=== PATIENT | female | born 1940 | race Caucasian/White ===

== ENCOUNTER 2016-11-05 17:39 | Inpatient (IN) | payer MEDICARE, OTHER ==
--- NOTE | 2016-11-05 18:52 | RAD ---
Name: MEGHA ROWLEY Exam: Left lower leg Comparison: None Clinical history: Ground-level fall. Leg pain. Initial encounter. Findings: 2 views of the left lower leg are submitted. Bone density is within normal limits. There is been prior total left knee arthroplasty. There is mild degenerative disease of the ankle. Lower leg edema is suspected. There is no fracture, dislocation, periosteal fracture foreign body. Impression: 1. Total left knee arthroplasty 2. No acute bony abnormality 3. Lower leg edema is suspected
[2016-11-05 22:12] LABS: ABSOLUTE NEUTROPHIL COUNT 3.9 K/mm3 (1.8-7.7); BASO % 0.2 % (0.2-1.0); EOS % 0.2 % (0.9-2.9); HEMOGLOBIN 6.7 gm/l (12.0-16.0); IMM NEUT% 0.3 % (0-1); LYMPH # 1.4 (1.0-4.8); LYMPH % 23.4 % (15-45); MEAN CELL VOLUME 105.9 fl (81.0-99.0); MEAN PLATELET VOLUME 13.8 fl (7.4-10.4); MONO # 0.6 (0.0-0.8); MONO % 9.5 % (4-12); NEUT % 66.4 % (43-75); PLATELET COUNT 52 K/mm3 (130-400); RED CELL DISTRIBUTION WIDTH 17.2 % (11.5-14.5)
[2016-11-05 22:39] LABS: INR 3.68; PROTHROMBIN TIME 41.4 SECONDS (9.3-11.4)
[2016-11-05 22:51] LABS: HEMATOCRIT 19.7 % (37.0-47.0)
[2016-11-05 22:56] LABS: PLATELET ESTIMATE DECREASED (NORMAL); TARGET CELLS 1+
[2016-11-05] MEDS ORDERED: IOPAMIDOL 300 (61%) 100 ML VIAL IV ONE (22:58)
[2016-11-06 00:16] VITALS: BMI 18.7
[2016-11-06] MEDS ORDERED: ACETAMINOPHEN 325 MG TABLET PO PRN (00:42)
[2016-11-06] MEDS ORDERED: BLISTEX LIPSTICK 1 EACH TP PRN (00:42)
[2016-11-06] MEDS ORDERED: MENTHOL/CETYLPYRD 1 EACH LOZENGE PO PRN (00:42)
[2016-11-06] MEDS ORDERED: MAGNESIUM HYDROXIDE 30 ML UDCUP PO PRN (00:42)
[2016-11-06] MEDS ORDERED: SODIUM CHLORIDE 0.9% 100 ML IV PRN (00:42)
[2016-11-06] MEDS ORDERED: SODIUM CHLORIDE 0.9% 500 ML IV PRN (00:46)
[2016-11-06] MEDS: OXYCODONE HCL 5 MG TABLET PO PRN ×3 (01:00→15:57)
[2016-11-06] MEDS ORDERED: BLOOD Y PLUMSET W/CASSETTE ONE ×2 (01:42→06:36)
[2016-11-06] MEDS ORDERED: ONDANSETRON 4 MG ODT TAB PO PRN (03:41)
[2016-11-06] MEDS ORDERED: LEVOTHYROXINE SODIUM 112 MCG TABLET PO SCH (07:30)
[2016-11-06] MEDS ORDERED: LEVOTHYROXINE SODIUM 25 MCG TABLET PO SCH (07:30)
--- NOTE | 2016-11-06 08:15 | HP ---
MEGHA ROWLEY [id number] : 1940 DATE OF ADMISSION: November 05, 2016 IDENTIFICATION: Ms. Rowley is a 75-year-old followed by Navya Quintero, family nurse practitioner and Dr. Casas. CHIEF COMPLAINT: Fall and hematoma. HISTORY OF PRESENT ILLNESS: Ms. Rowley fell while walking two days ago. She fell on her right leg. She has had occasional sharp pain in the leg since then but noted when the leg was unwrapped on November 05, 2016, that there was a very large ecchymoses of the left calf. She did not have dyspnea or lightheadedness but was concerned about injury to the left knee, so came to the emergency department for evaluation. X-ray shows stable prosthetic knee joint but laboratories show profound anemia with a hemoglobin of 6.7. She was referred to the hospitalist service for transfusion. REVIEW OF SYSTEMS: HEENT: No headache or lightheadedness. Denies problems with ears, eyes, nose or throat. RESPIRATORY: No cough or dyspnea. CARDIAC: No chest pain or palpitations. GASTROINTESTINAL: She does have occasional nausea, no vomiting, no diarrhea, constipation, hematochezia or melena. GENITOURINARY: No dysuria or hematuria. MUSCULOSKELETAL: Chronic back and right hip pain as well as intermittent acute left leg pain. Weakness of the left arm which has been present for an indeterminate period of time, but she is unable to lift the arm spontaneously and has to use her right arm to lift or maneuver the left arm. CONSTITUTIONAL: States she feels cold all the time. PAST MEDICAL HISTORY: 1. Chronic atrial fibrillation on warfarin anticoagulation. 2. Hypothyroidism on replacement. 3. Cancer of the right lung treated with Optiva followed by Dr. Casas. She has not had surgery or radiation. 4. Chronic lower extremity lymphedema bilateral. 5. Osteoarthritis. 6. Underweight with body mass index of 19.9. PAST SURGICAL HISTORY: 1. Bilateral knee arthroplasties. 2. Right hip arthroplasty. 3. Lumbar back surgery. 4. Hysterectomy with appendectomy. 5. Bilateral cataracts. 6. Removal of calcium deposit from the right shoulder. ALLERGIES: REPORTED TO: 1. PENICILLIN WHICH CAUSED HIVES. 2. ASPIRIN WHICH CAUSED ABDOMINAL PAIN. MEDICATIONS: 1. Folic acid 1 mg orally daily. 2. Warfarin 3.25 mg orally daily. 3. Baclofen 20 mg orally daily. 4. Levothyroxine 137 mcg daily. 5. Oxycodone 20 mg every three hours as needed. 6. Naprosyn 375 mg orally daily. 7. Vitamin D supplement. HABITS: She is a lifetime smoker since her teenage years, and is currently smoking about one-half pack her day. Denies any alcohol use. SOCIAL HISTORY: She is . Lives in an apartment in [facility]. Her granddaughter is her caregiver and spends most days with her but does not live with her. FAMILY HISTORY: Both parents had coronary artery disease. Mother had breast cancer. She has a brother with Alzheimer's disease. CODE STATUS: She does not want to be placed on a ventilator if there is not a good chance of getting off of it, but would like an attempt at CPR. PHYSICAL EXAMINATION: GENERAL: This is a cachectic appearing elderly woman well hydrated repeats the same information several times. VITAL SIGNS: Blood pressure is 106/59, pulse 80 respiratory rate 20, oxygen saturation 96% on room air, temperature 97.1 degrees Fahrenheit. HEENT: Pupils are equal, round and reactive. Extraocular muscles are intact. Oropharynx with full artificial dentures. CHEST: Kyphotic with poor air movement. No wheezes or rhonchi. HEART: Is irregularly irregular. ABDOMEN: Is soft, nontender, normal bowel tones. No organomegaly. EXTREMITIES: 2+ lymphedema of the lower extremities. They are both wrapped with Kerlix up to the knees. On the left there is some deep ecchymosis. Dorsalis pedis pulses are trace. NEUROLOGIC: She is unable to lift the left arm. 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 Otherwise nonfocal. LABORATORY DATA: White blood cell count 5.9, hemoglobin 6.7, hematocrit 19.7. Indices are macrocytic. Platelets low at 52. INR 3.68. RADIOLOGY: X-ray of the left lower extremity shows total knee arthroplasty. No acute bony abnormality and lower leg edema. ASSESSMENT: Ms. Rowley is a 75-year-old who presents two days after a fall with profound anemia. Some degree of this is undoubtedly acute blood loss anemia into the left calf. But she likely has underlying anemia as well. This may be related to lung cancer. She has thrombocytopenia. She has chronic atrial fibrillation. She has hypothyroidism and nicotine dependency. PLAN: 1. Admit to medical/surgical floor. 2. Transfuse two units of packed red blood cells. 3. Check head CT scan without contrast for evidence of cerebrovascular accident and with contrast for evidence of metastatic disease. 4. Physical therapy and occupational therapy evaluation and treatment. 5. Continue outpatient medications except hold naproxen and warfarin. 6. Check TSH for appropriateness of levothyroxine dose. 7. Check B12 level which could be causing her macrocytosis if deficient. 8. Code status is DO NOT INTUBATE. 9. She is excessively anticoagulated on warfarin and does not require any additional venous thromboembolism prophylaxis.
[2016-11-06 08:31] LABS: HEMATOCRIT 20.2 % (37.0-47.0); MEAN CELL VOLUME 100.5 fl (81.0-99.0); MEAN CORPUSCULAR HEMOGLOBIN 34.8 pg (27.0-31.0); MEAN CORPUSCULAR HGB CONC 34.7 g/dl (33.0-37.0); RED CELL DISTRIBUTION WIDTH 19.1 % (11.5-14.5)
[2016-11-06 08:52] LABS: CALCIUM 8.3 mg/dL (8.6-10.3)
[2016-11-06] MEDS ORDERED: FOLIC ACID 1 MG TABLET PO SCH (09:00)
[2016-11-06] MEDS ORDERED: BACLOFEN 20 MG TABLET PO SCH (09:00)
[2016-11-06] MEDS ORDERED: PANTOPRAZOLE 40 MG TABLET DR PO SCH (09:00)
[2016-11-06] MEDS ORDERED: DOCUSATE SODIUM 100 MG CAPSULE PO SCH (09:00)
--- NOTE | 2016-11-06 10:53 | CT ---
Name: MEGHA ROWLEY Exam: CT head with and without contrast Comparison: None Clinical history: Left arm weakness. History of lung cancer. Technique: Helical CT was performed through the head prior to and following intravenous administration of 80 cc Isovue-300. Angled axial reconstructions were obtained. Sagittal and coronal reconstructions were obtained as well. An automated dose reduction technique was used to minimize patient radiation dose. Findings: CT head with and without contrast: There is no shift of the midline structures. Mild atrophy is present. In the left parietal lobe, superior to the lateral ventricle, there is a 8.8 x 8.0 x 7.3 mm enhancing nodule. Given history, metastatic disease is favored. MRI of the head with contrast is strongly recommended as it is much more sensitive and specific to metastatic disease. There is no mass effect or hemorrhage. Cisterns are uneffaced. Posterior fossa is unremarkable. There is no fracture. Visualized paranasal sinuses and mastoid air cells are within normal limits. Impression: 1. 8.8 mm round solid enhancing nodule left parietal lobe. Metastatic disease given history is favored. MRI with contrast is strongly recommended. 2. Age-appropriate atrophy Note: The above report was uploaded to [facility]'s electronic medical records system at 1049 hours.
[2016-11-06 14:23] VITALS: BP 101/61
[2016-11-06] MEDS ORDERED: DIGOXIN 0.25 MG TABLET PO ONE (16:13)
[2016-11-06 16:37] LABS: HEMATOCRIT 27.2 % (37.0-47.0); HEMOGLOBIN 9.6 gm/l (12.0-16.0)
--- NOTE | 2016-11-06 19:20 | DS ---
MEGHA ROWLEY [id number] DATE OF ADMISSION: November 05, 2016 DATE OF DISCHARGE: November 06, 2016 DISCHARGE DIAGNOSES: 1. Fall with a hematoma in the left leg. 2. Acute blood loss anemia. 3. Tachycardia due to chronic atrial fibrillation. 4. History of metastatic lung cancer with some left arm weakness, probably due to brain metastasis. 5. Underweight status. 6. Chronic hypothyroidism with slight suboptimal thyroid replacement. 7. Nicotine dependence. 8. Iron deficiency anemia. 9. Slightly elevated INR associated with Coumadin therapy. 10. Stage 3 right decubital ulcer. SUMMARY OF ADMISSION AND HOSPITAL COURSE: The patient is a 75-year-old female with a history of lung cancer followed by [facility] on Opdivo therapy who presented after a fall on her left lower leg with complaints of leg pain and swelling. Workup in the emergency department showed hemoglobin of 6.7, INR mildly elevated at 3.68, platelet count was low at 52, white blood cell count was normal at 5.9. X-ray of the left lower extremity showed no acute abnormality. Her chemistry profile was unremarkable, and she was admitted by the hospitalist service and transfused two units of packed red blood cells. During her stay, she did have some persistent tachycardia on the monitor with heart rates into the 130s and 140s. She was also noted to have a stage 3 right sacral decubitus ulceration. As far as her tachycardia is concerned, digitalis was recommended for rate control due to blood pressures as low as 91/49. She was asymptomatic despite the rapid heartbeat. After transfusion, her hemoglobin stabilized at 9.6. She was very eager to go home. She was noted to have some left arm weakness which is new in onset over the past week. She had a CT of the brain showing an 8.8 mm enhancing nodule in the left parietal lobe suspicious for metastatic disease but anatomically did not explain her left arm weakness. The cause of her left arm weakness still felt to be secondary to metastatic disease but further workup was not performed in the emergency department. She was evaluated and treated by physical therapy and occupational therapy and shown to be independent with her activities of daily living with standby assistance. She has a supportive granddaughter who agreed to be with her 24/ over the weekend. Patient declined further workup of her anemia and insisted on going home in spite of the ongoing tachycardia. Given the fact that she likely has a terminal cancer, I felt the focus was on honoring the patient's wishes during this stressful time, and recommended that she start digitalis. I gave her a dose in the hospital and I am going to do an oral loading dose at home. She will be following up with Dr. Casas and her primary care provider next week regarding the brain metastasis and her anemia. She did have a TSH level which was slightly high at 9.32 and her thyroid hormone was increased slightly. Serum iron level was also low at 23. B12 level was checked and it was normal at 310. PHYSICAL EXAM: VITAL SIGNS: Her discharge vital signs showed a temperature of 98.8, pulse 135, blood pressure is 101/61, respirations 12, oxygen saturation 92% on room air. Body mass index 19.9. Weight is 52.7 kilograms. GENERAL: This is a thin elderly female in no acute distress. HEENT: Shows moist, pink oral mucosa, no lesions. LUNGS: Are clear to auscultation bilaterally. CARDIOVASCULAR: Exam reveals an irregular tachycardia with no murmur. ABDOMEN: Is soft, nontender, nondistended with positive bowel sounds. EXTREMITIES: Show no peripheral edema. Exam of the buttocks showed a stage 3 decubitus ulcer on the right buttock region measuring about 8 x 4 cm. LABORATORY STUDIES: Showed white count of 5.4, hemoglobin of 9.6 post two units and hematocrit 27.2. Chemistry profile on the day of admission and discharge showed a sodium 130, potassium 3.8, creatinine 0.7. As I mentioned above, her serum iron level was low at 23, B12 level normal at 310, and TSH level was elevated at 9.32. DISPOSITION: Home. DISCHARGE MEDICATIONS: She is going to be prescribed: 1. Lanoxin 0.125 mg tablets. She will take this daily at noon. I recommended she take it four times a day for the first day for a total of four doses, and then once daily at noon after that. 2. She is prescribed iron sulfate 325 mg twice daily. 3. Her thyroid dose is increased to a 150 mcg daily of Levothroid. 4. She will take vitamin C 250 mg twice daily with the iron supplement. 5. She will continue with vitamin D3 1000 units at home as previously prescribed. 6. Oxycodone 20 mg every three hours as needed for pain. 7. Baclofen 20 mg daily as needed for spasm. 8. Coumadin 3.25 mg daily. 9. Folic acid 1 mg daily. FOLLOWUP: Followup is to be scheduled by the patient with Dr. Jarvis Casas, and she will contact his office early next week. She will follow up with Navya Villar, family nurse practitioner, in seven to ten days. Cc: Maryam Love M.D.
== END 2016-11-06 17:30 | disposition home or self-care (01) | DRG 604 ==
LOC: ED 17:39 → MS 22:57 → OBSVTOIN 11-06 00:42
PROVIDERS: ADMIT Family Medicine; ATTEND Family Medicine
PROC: 30233N1 Transfusion of Nonautologous Red Blood Cells into Peripheral Vein, Percutaneous Approach (ICD-10-PCS; principal; 2016-11-06)
DX: S80.12XA Contusion of left lower leg, initial encounter (principal); L89.153 Pressure ulcer of sacral region, stage 3; D62 Acute posthemorrhagic anemia; Z68.1 Body mass index [BMI] 19.9 or less, adult; W19.XXXA Unspecified fall, initial encounter; Y92.009 Unspecified place in unspecified non-institutional (private) residence as the place of occurrence of the external cause; R00.0 Tachycardia, unspecified; I48.2 Chronic atrial fibrillation; Z85.118 Personal history of other malignant neoplasm of bronchus and lung; F17.210 Nicotine dependence, cigarettes, uncomplicated; E03.9 Hypothyroidism, unspecified; D50.8 Other iron deficiency anemias; R63.6 Underweight; Z88.1 Allergy status to other antibiotic agents